=== PATIENT | male | born 2000 | race American Indian/Alaskan Native ===

== ENCOUNTER 2019-03-25 17:32 | Emergency (ER) | payer OTHER ==
[2019-03-25 17:39] VITALS: BP 132/73
--- NOTE | 2019-03-25 17:41 | Event Note ---
ED Screening Note ED Screening Note: PAIN RLE TIB FIB AREA SP FALL MONTHS AGO PAIN INC LAST PM ANT SURFACE RX NONE PMH NONE This initial assessment/diagnostic orders/clinical plan/treatment(s) is/are subject to change based on patients health status, clinical progression and re- assessment by fellow clinical providers in the ED. Further treatment and workup at subsequent clinical providers discretion. Patient/guardian urged not to elope from the ED as their condition may be serious if not clinically assessed and managed. Initial orders include:
[2019-03-25] MEDS ORDERED: IBUPROFEN PO ONE (17:58)
--- NOTE | 2019-03-25 18:30 | XRay Report ---
PROCEDURE: XR TIBIA FIBULA 2V RT HISTORY: leg PAIN FINDINGS: AP and lateral views of the right tibia and fibula were acquired and demonstrate no fractur e of the right tibia or fibula. IMPRESSION: No fracture is seen in the right tibia or fibula This document is electronically signed by Jones Cope MD., March 25 2019 06:28:22 PM ET
--- NOTE | 2019-03-25 18:47 | Emergency Department Report ---
ED Lower Extremity HPI - General Chief Complaint: Extremity Injury, Lower Stated Complaint: RT FOOT INJURY Time Seen by Provider: 03/25/19 17:40 Source: patient Mode of arrival: Ambulatory Limitations: No Limitations - History of Present Illness Initial Comments: 18-year-old male comes in for right foot pain. Patient reports that he had injured his foot in November 2018 while playing soccer. Patient reports that is still hurts. Patient reports he was seen by emergency room and had x- rays which she reported was negative. Patient admits he is not followed by any provider since his last ER visit. Patient has taken nothing for pain. Patient states he stopped playing soccer since November. He has been using rice therapy. Reports pain is worse with walking for long period of time and better with rest. Patient denies any back pain. MD Complaint: leg injury, foot injury Onset/Timin -: month(s) Injury: Ankle: Right, Foot: Right Type of Injury: unknown Severity: moderate Severity scale (0 -10): 5 Improves With: rest Worsens With: weight bearing (waking on for to long), movement Context: direct blow Associated Symptoms: swelling (intermittent), numbness (feet) - Related Data Previous Rx's Medication Instructions Recorded Last Taken Type Ibuprofen [Motrin 600 MG tab] 600 mg PO Q8H PRN #30 tablet 03/25/19 Unknown Rx Allergies Allergy/AdvReac Type Severity Reaction Status Date / Time No Known Allergies Allergy Unverified 03/25/19 17:32 ED Review of Systems ROS: Stated complaint: RT FOOT INJURY Other details as noted in HPI Comment: All other systems reviewed and negative Musculoskeletal: arthralgia (right lower leg pain) ED Past Medical Hx - Past Medical History Previous Medical History?: No - Surgical History Past Surgical History?: No - Social History Smoking Status: Never Smoker Substance Use Type: None - Medications Home Medications: Home Medications Medication Instructions Recorded Confirmed Last Taken Type Ibuprofen [Motrin 600 MG tab] 600 mg PO Q8H PRN #30 tablet 03/25/19 Unknown Rx ED Physical Exam - General Limitations: No Limitations General appearance: alert, in no apparent distress - Head Head exam: Present: atraumatic, normocephalic - Eye Eye exam: Present: normal appearance - ENT ENT exam: Present: mucous membranes moist - Neck Neck exam: Present: normal inspection, full ROM - Expanded Lower Extremity Exam Right Knee exam: Present: normal inspection, full ROM. Absent: tenderness, swelling Lower Leg exam: Present: normal inspection, full ROM. Absent: tenderness, swelling Ankle exam: Present: normal inspection, full ROM. Absent: tenderness, swelling Neuro vascular tendon exam: Present: no vascular compromise ED Course Vital Signs 03/25/19 17:38 Temperature 98.2 F Pulse Rate 91 H Respiratory 16 Rate Blood Pressure 132/73 O2 Sat by Pulse 99 Oximetry ED Lower Extremity MDM - Radiology Data Radiology results: report reviewed Patient: CARIE WILL MR#: [id number] : 2000 Acct:[id number] Age/Sex: 18 / M ADM Date: 03/25/19 Loc: ED Attending Dr: Ordering Physician: HAIDER MARTINEZ Date of Service: 03/25/19 Procedure(s): XR tibia fibula 2V RT Accession Number(s): [id number] cc: HAIDER MARTINEZ Fluoro Time In Minutes: PROCEDURE: XR TIBIA FIBULA 2V RT HISTORY: leg PAIN FINDINGS: AP and lateral views of the right tibia and fibula were acquired and demonstrate no fracture of the right tibia or fibula. IMPRESSION: No fracture is seen in the right tibia or fibula This document is electronically signed by Jones Cope MD., March 25 2019 06:28:22 PM ET Transcribed By: MARCUS Dictated By: JONES COPE MD Electronically Authenticated By: JONES COPE MD Signed Date/Time: 03/25/191829 DD/ 07 TD/TT: 03/25/191807 - Medical Decision Making 18-year-old male comes in for right foot pain for 5 months. X-ray was negative. Discussed the patient he can take [id number] Tylenol or ibuprofen. Discussed with patient he should follow up with the orthopedic provider as this is been going on for 5 months. Patient verbalizes understanding. Critical care attestation.: If time is entered above; I have spent that time in minutes in the direct care of this critically ill patient, excluding procedure time. ED Disposition Clinical Impression: Chronic leg pain Qualifiers: Laterality: right Qualified Code(s): M79.604 - Pain in right leg; G89.29 - Other chronic pain Disposition: DC-01 TO HOME OR SELFCARE Is pt being admited?: No Does the pt Need Aspirin: No Condition: Stable Instructions: Arthralgia (ED) Additional Instructions: Take pain medication as needed. Follow up orthopedic provider I have listed for her convenience. Prescriptions: Ibuprofen [Motrin 600 MG tab] 600 mg PO Q8H PRN #30 tablet PRN Reason: Pain Referrals: FAMILIA IBRAHIM MD [Staff Physician] - 3-5 Days
== END 2019-03-25 19:02 | disposition home or self-care (01) ==
LOC: ED 17:32
DX: M79.604 Pain in right leg (principal); R22.41 Localized swelling, mass and lump, right lower limb; G89.29 Other chronic pain
CPT/HCPCS: 99283